=== PATIENT | male | born 1950 | race Caucasian/White ===

== ENCOUNTER → 2017-12-25 | Day surgery (SDC) | payer MEDICARE, OTHER ==
[~2017-12-25] VITALS: Ht 162.6 cm; Wt 67.1 kg
[~2017-12-25] MED LIST: CHLORHEXIDINE GLUCONATE 2 % 1 PACK (2 CLOTHS) TOPICAL PRN; CIPR-9 PO; CIPROFLOXACIN/DEXT 400 MG/200 ML IV PRN; DO NOT ADM ANY ANTICOAGULANT DRUGS PRN; FLEE10EN RECTAL; LACTATED RINGER'S 1000 ML IV PRN; LIDOCAINE HCL 1% PF 5 ML SYRINGE OTHER ONE; METOPROLOL TARTRATE 25 MG TAB PO PRN; OMEP40CA2 PO; ONDANSETRON HCL 4 MG/2 ML VIAL IV PUSH PRN; POVIDONE IODINE 5% (ANTISEPSIS KIT) 4 APPLICATIONS EACH NARE PRN; PRAV40TA2 PO; PROPOFOL 200 MG/20 ML AMP IV ONE; SODIUM CHLORID 0.9% 500 ML IV PRN; TAMS0.4C4 PO; oxyCODONE/ACETAMINOPHEN 5 MG/325 MG TAB PO PRN
[2017-12-25 09:17] LABS: AUTOMATED NEUTROPHIL # 2.1 TH/MM3 (1.8-7.7); BASOPHIL % 0.3 % (0.0-2.0); EOSINOPHIL % 0.7 % (0.0-4.0); HEMATOCRIT 37.1 % (39.0-51.0); LYMPH % 31.7 % (9.0-44.0); LYMPHOCYTE # 1.1 TH/MM3 (1.0-4.8); MEAN CELL VOLUME 89.4 FL (80.0-100.0); MEAN CORPUSCULAR HEMOGLOBIN 31.2 PG (27.0-34.0); MEAN CORPUSCULAR HGB CONC 34.9 % (32.0-36.0); MEAN PLATELET VOLUME 8.1 FL (7.0-11.0); MONO % 8.4 % (0.0-8.0); MONOCYTE # 0.3 TH/MM3 (0-0.9); NEUT % 58.9 % (16.0-70.0); PLATELET COUNT 226 TH/MM3 (150-450); RED BLOOD COUNT 4.16 MIL/MM3 (4.50-5.90); RED CELL DISTRIBUTION WIDTH 13.5 % (11.6-17.2); WHITE BLOOD COUNT 3.6 TH/MM3 (4.0-11.0)
--- NOTE | 2017-12-25 10:18 | PD.OP ---
Operative Report Date of Surgery: Dec 25, 2017 Preoperative Diagnosis: Elevated PSA. PSA of 7.6 Postoperative Diagnosis: Same Procedure: Transrectal ultrasound with prostate needle biopsies Anesthesia: MAC Surgeon: Nir Hess Senior Integration Developer(s): None Resident Surgeon: None Operation and Findings: 67-year-old male with findings of a PSA elevation of 7.6. Patient elected to undergo transrectal ultrasound with prostate guided needle biopsies in the operating room under sedation. Risk and benefits were discussed preoperatively and he is willing to proceed. The patient was brought to the operating room and remained on the stretcher. He was left in the left lateral decubitus position. MAC anesthesia was administered. The patient had received preprocedure antibiotics and a fleets enema preoperatively. The ultrasound probe was inserted into the rectum and volumetric measurements of the prostate were then taken. No hypoechoic lesions were identified. The prostate volume was noted to be 18.41 cm. 12 core biopsies were then taken of the prostate gland. The patient tolerated the procedure well and was awoken and transferred occurring in stable condition. Nir Hess DO Dec 25, 2017 10:17
[2017-12-25 11:34] VITALS: BP 140/60; PULSE 52; RESP 20; TEMP 98; O2SAT 98
--- NOTE | 2017-12-25 18:24 | EKG ---
Date Performed: 12/25/2017 Time Performed: 08:04:56 PTAGE: 67 years EKG: SINUS BRADYCARDIA POSSIBLE RIGHT VENTRICULAR CONDUCTION DELAY POSSIBLE LEFT VENTRICULAR HYP ERTROPHY POSSIBLE LATERAL MYOCARDIAL INFARCTION , OF INDETERMINATE AGE ABNORMAL ECG NO PREVIOUS TRACING DOCTOR: Stella Dietz Interpretating Date/Time 12/25/2017 18:20:14
== END | disposition home or self-care (01) ==
LOC: HSDC 07:29
PROVIDERS: ATTEND Urology
DX: C61 Malignant neoplasm of prostate (principal); R35.1 Nocturia; R33.9 Retention of urine, unspecified; G47.30 Sleep apnea, unspecified; E78.5 Hyperlipidemia, unspecified; K21.9 Gastro-esophageal reflux disease without esophagitis; Z01.810 Encounter for preprocedural cardiovascular examination; Z01.818 Encounter for other preprocedural examination
CPT/HCPCS: 00902; 55700; 85025; 88341; 88342; 93005; G0416; J0744; J7120